=== PATIENT | female | born 1970 | race African-American/Black ===

== ENCOUNTER 2018-03-27 14:43 | Emergency (ER) | payer MEDICAID ==
[~2018-03-27] VITALS: Ht 162.6 cm; Wt 77.0 kg
[2018-03-27] MEDS ORDERED: CYCLOBENZAPRINE 10MG TABLET PO ONE (17:30)
[2018-03-27 18:13] VITALS: BP 144/91
== END 2018-03-27 18:20 | disposition home or self-care (01) ==
LOC: ER 14:43
DX: S10.93XA Contusion of unspecified part of neck, initial encounter (principal); S20.219A Contusion of unspecified front wall of thorax, initial encounter; S40.011A Contusion of right shoulder, initial encounter; J45.909 Unspecified asthma, uncomplicated; F17.200 Nicotine dependence, unspecified, uncomplicated; Z98.890 Other specified postprocedural states; Z88.0 Allergy status to penicillin; V89.2XXA Person injured in unspecified motor-vehicle accident, traffic, initial encounter; Y93.89 Activity, other specified; Y92.89 Other specified places as the place of occurrence of the external cause; Y99.8 Other external cause status
CPT/HCPCS: 71045; 73030; 99284

== ENCOUNTER 2021-03-14 09:02 | Emergency (ER) | payer MEDICAID ==
[~2021-03-14] VITALS: Ht 162.6 cm; Wt 80.0 kg
[2021-03-14] MEDS ORDERED: DIAZEPAM 5 MG TABLET PO ONE (09:45)
[2021-03-14] MEDS ORDERED: KETOROLAC 60MG/2ML VIAL IM ONE (11:15)
[2021-03-14] MEDS ORDERED: TRAM50TA3 MT (11:54)
[2021-03-14] MEDS ORDERED: METH500T6 MT (11:54)
[2021-03-14] MEDS ORDERED: IBUP-2030 MT (11:54)
[2021-03-14 12:20] VITALS: BP 128/70
== END 2021-03-14 12:20 | disposition home or self-care (01) ==
LOC: ER 09:02
DX: M54.12 Radiculopathy, cervical region (principal); J45.909 Unspecified asthma, uncomplicated; Z88.0 Allergy status to penicillin; Z98.890 Other specified postprocedural states
CPT/HCPCS: 72125; 73030; 73080; 73090; 73130; 96372; 99284; J1885

== ENCOUNTER 2024-03-20 13:42 | Emergency (ER) | payer MEDICAID, OTHER ==
[~2024-03-20] VITALS: Ht 165.1 cm; Wt 80.0 kg
[~2024-03-20 13:42] MED LIST: IBUP-2030 MT; METH-773 MT; TRAM50TA3 MT
[2024-03-20 13:47] VITALS: O2SAT 98
[2024-03-20 18:43] VITALS: PULSE 75; TEMP 98.1
[2024-03-20] MEDS: KETOROLAC 30MG/ML VIAL IM ONE (18:43)
[2024-03-20] MEDS: ACETAMINOPHEN 325MG TABLET PO ONE (18:43)
[2024-03-20 18:44] VITALS: BP 140/93; RESP 18
[2024-03-20] MEDS: LIDOCAINE 5% PATCH TOP SCH (18:44)
[2024-03-20] MEDS ORDERED: TOPUD MT (19:08)
[2024-03-20] MEDS ORDERED: LIDO700A15 TP (19:08)
[2024-03-20] MEDS ORDERED: CYCL5TAB MT (19:08)
== END 2024-03-20 19:58 | disposition home or self-care (01) ==
LOC: ER 13:42
DX: S16.1XXA Strain of muscle, fascia and tendon at neck level, initial encounter (principal); S39.012A Strain of muscle, fascia and tendon of lower back, initial encounter; M25.531 Pain in right wrist; J45.909 Unspecified asthma, uncomplicated; Z98.890 Other specified postprocedural states; Z79.899 Other long term (current) drug therapy; Z88.0 Allergy status to penicillin; X58.XXXA Exposure to other specified factors, initial encounter; Y93.89 Activity, other specified; Y92.89 Other specified places as the place of occurrence of the external cause; Y99.8 Other external cause status
CPT/HCPCS: 99284; 81025; 73030; 73080; 73110; 96372; J1885

== ENCOUNTER 2024-12-15 15:10 | Emergency (ER) | payer MEDICAID, OTHER ==
[~2024-12-15] VITALS: Ht 162.6 cm; Wt 82.5 kg
[~2024-12-15 15:10] MED LIST changes: +CYCL5TAB3 MT; +LIDO-53 TP; +TOPUD MT
[2024-12-15 15:27] VITALS: O2SAT 98
[2024-12-15] MEDS: LIDOCAINE HCL/PF 1% 10 MG/ML 5ML VIAL INFIL ONE (16:13)
[2024-12-15 17:26] VITALS: BP 166/106; PULSE 84; RESP 18; TEMP 36.7; O2SAT 98
[2024-12-15] MEDS: ACETAMINOPHEN 325MG TABLET PO ONE (17:26)
[2024-12-15] MEDS ORDERED: ACET-2708 MT (17:28)
[2024-12-15] MEDS ORDERED: CLIN75SO10 MT (17:38)
== END 2024-12-15 17:53 | disposition home or self-care (01) ==
LOC: ER 15:10
DX: S01.512A Laceration without foreign body of oral cavity, initial encounter (principal); I10 Essential (primary) hypertension; Z98.890 Other specified postprocedural states; Z88.0 Allergy status to penicillin; X58.XXXA Exposure to other specified factors, initial encounter; Y93.89 Activity, other specified; Y92.89 Other specified places as the place of occurrence of the external cause; Y99.8 Other external cause status
CPT/HCPCS: 99284; 71045; 73562; 12013; J2003

== ENCOUNTER 2024-12-19 07:01 | Emergency (ER) | payer OTHER ==
[~2024-12-19] VITALS: Ht 165.1 cm; Wt 85.0 kg
[~2024-12-19 07:01] MED LIST changes: +ACET-2708 MT; +CLIN75SO10 MT
[2024-12-19 07:35] VITALS: O2SAT 98
[2024-12-19 08:35] VITALS: BP 122/78; PULSE 80; RESP 17; TEMP 36.7; O2SAT 98
== END 2024-12-19 08:35 | disposition home or self-care (01) ==
LOC: ER 07:01
DX: S01.512D Laceration without foreign body of oral cavity, subsequent encounter (principal); Z88.0 Allergy status to penicillin; Z79.899 Other long term (current) drug therapy; X58.XXXD Exposure to other specified factors, subsequent encounter
CPT/HCPCS: 99281